=== PATIENT | female | born 1965 | race Caucasian/White ===

== ENCOUNTER 2022-10-17 07:36 | Observation (INO) | payer SELFPAY ==
[~2022-10-17] VITALS: Ht 167.6 cm; Wt 63.5 kg
[~2022-10-17 07:36] MED LIST: BENL200I SC; HYDR200T46 PO; OMEP-173 PO; PREG100C2 PO; TIZA2TA PO; TRAZ-257 PO
[2022-10-17] MEDS ORDERED: CLINDAMYCIN 900 MG in IV 1 EA IV ONE (07:40)
[2022-10-17] MEDS ORDERED: LR 1,000 ML IV SCH ×3 (08:15→18:10)
[2022-10-17] MEDS ORDERED: POTA99CA2 PO (08:34)
[2022-10-17] MEDS ORDERED: VITMTA PO (08:34)
[2022-10-17] MEDS ORDERED: CALTTAB6 PO (08:34)
[2022-10-17] MEDS ORDERED: PREG50CA3 PO (08:34)
[2022-10-17] MEDS ORDERED: ONDA4TAB6 SL (08:34)
[2022-10-17] MEDS ORDERED: MAGN400T33 PO (08:34)
[2022-10-17] MEDS ORDERED: MUPI2OI NARES (08:34)
[2022-10-17] MEDS ORDERED: HOME MED LIST COMPLETE! XX SCH (08:35)
[2022-10-17] MEDS ORDERED: ONDANSETRON 4MG 2ML VIAL As Ordered ONE (08:39)
[2022-10-17] MEDS ORDERED: ROCURONIUM BROMIDE 50MG/5ML VIAL As Ordered ONE ×3 (08:39→12:49)
[2022-10-17] MEDS ORDERED: propofoL 200 MG/20 ML VIAL As Ordered ONE (08:39)
[2022-10-17] MEDS ORDERED: LIDOCAINE 2% 100MG/5ML SDV (FOR ANES.) As Ordered ONE (08:39)
[2022-10-17] MEDS ORDERED: fentaNYL 250 MCG/5 ML INJECTION As Ordered ONE (08:39)
[2022-10-17] MEDS ORDERED: MIDAZOLAM INJ 2MG/2ML VIAL As Ordered ONE (08:39)
[2022-10-17] MEDS ORDERED: SEVOFLURANE INHAL SOLN 250 ML BTL As Ordered ONE (09:10)
[2022-10-17] MEDS ORDERED: LACRILUBE (AKWA TEARS) OPHTH OINT 3.5GM As Ordered ONE (09:12)
[2022-10-17] MEDS ORDERED: GENTAMICIN SULF 80MG/2ML VIAL As Ordered ONE (09:19)
[2022-10-17] MEDS ORDERED: ePHEDrine SULFATE 25 MG/5 ML(5MG/ML) SYRINGE As Ordered ONE ×4 (10:41→14:18)
[2022-10-17] MEDS ORDERED: SUGAMMADEX SODIUM 500 MG/5 ML VIAL (BRIDION) As Ordered ONE (11:13)
[2022-10-17] MEDS ORDERED: HYDROmorphone HCL 2MG/ML 1ML VIAL As Ordered ONE (11:13)
[2022-10-17] MEDS ORDERED: PHENYLephrine 500MCG 5ML (100MCG/ML) SYRINGE As Ordered ONE (12:11)
[2022-10-17] MEDS ORDERED: HYDROMORPHONE HCL 0.5 MG/ 0.5 ML SYRINGE IV PRN (17:00)
[2022-10-17] MEDS ORDERED: ONDANSETRON 4MG 2ML VIAL IV PRN (17:00)
[2022-10-17] MEDS: oxyCODONE 5MG TAB PO PRN ×2 (17:29→18:01)
[2022-10-17] MEDS ORDERED: METOCLOPRAMIDE INJ 10MG/2ML VIAL IV STA (17:32)
[2022-10-17] MEDS: fentaNYL 100 MCG/2 ML INJECTION IV PRN ×4 (17:32→17:54)
[2022-10-17] MEDS ORDERED: oxyCODONE 5MG TAB PO PRN (18:10)
[2022-10-17 19:00] VITALS: BP 113/71; TEMP 97.7; O2SAT 100
[2022-10-17 20:00] VITALS: BP 114/71; TEMP 97.9; O2SAT 100
[2022-10-17] MEDS: tiZANidine 4 MG TAB PO SCH (20:41)
[2022-10-17] MEDS: PREGABALIN 50 MG CAP (LYRICA) PO SCH (20:43)
[2022-10-17] MEDS: HYDROXYCHLOROQUINE 200 MG TAB PO SCH (20:43)
[2022-10-17] MEDS: ACETAMINOPHEN TAB 650MG DOSE (2X325MG) PO PRN (20:44)
[2022-10-17] MEDS ORDERED: OMEPRAZOLE 20MG CAP PO SCH (21:00)
[2022-10-17] MEDS ORDERED: traZODone 100 MG TAB PO SCH (21:00)
[2022-10-17] MEDS: ONDANSETRON 4MG 2ML VIAL IV PRN (23:54)
[2022-10-17] MEDS: MEPERIDINE 25 MG/ML 1ML VIAL IM PRN (23:54)
[2022-10-18 05:11] VITALS: BP 90/50; TEMP 98.8; O2SAT 98
[2022-10-18 07:24] LABS: HEMOGLOBIN 10.7 g/dl (12.0-15.5); MEAN CORPUSCULAR HEMOGLOBIN 30.1 pg (27.0-33.0); MEAN CORPUSCULAR HGB CONC 32.4 g/dl (32.0-36.5); MEAN CORPUSCULAR VOLUME 92.7 fl (80.0-96.0); PLATELET COUNT, AUTOMATED 339 10^3/uL (150-450); RED BLOOD COUNT 3.56 10^6/uL (4.00-5.40); WHITE BLOOD COUNT 10.7 10^3/uL (4.0-10.0)
[2022-10-18] MEDS ORDERED: MAGNESIUM OXIDE 400MG TAB (MAG-OX) PO SCH (09:00)
[2022-10-18] MEDS ORDERED: MULTIVITAMINS/MINERALS THERAP 1 TAB PO SCH (09:00)
[2022-10-18] MEDS: ONDANSETRON 4MG 2ML VIAL IV PRN (09:19)
[2022-10-18] MEDS: HYDROXYCHLOROQUINE 200 MG TAB PO SCH (09:20)
[2022-10-18] MEDS: PREGABALIN 50 MG CAP (LYRICA) PO SCH (09:21)
[2022-10-18] MEDS: tiZANidine 4 MG TAB PO SCH (09:21)
[2022-10-18] MEDS: ACETAMINOPHEN TAB 650MG DOSE (2X325MG) PO PRN (09:23)
[2022-10-18] MEDS ORDERED: OXYC-517 PO (09:44)
[2022-10-18 14:00] VITALS: BP 90/52; TEMP 98.1; O2SAT 99
[2022-10-18] MEDS: MEPERIDINE 25 MG/ML 1ML VIAL IM PRN (14:33)
== END 2022-10-18 15:46 | disposition home or self-care (01) ==
LOC: M SDC 07:36 → M RR INP 07:38 → M MS5PR 18:50
PROVIDERS: ADMIT Plastic Surgery Surgery of the Hand; ATTEND Plastic Surgery Surgery of the Hand
DX: M54.07 Panniculitis affecting regions of neck and back, lumbosacral region (principal); L98.7 Excessive and redundant skin and subcutaneous tissue; Z98.84 Bariatric surgery status; K21.9 Gastro-esophageal reflux disease without esophagitis; Z79.899 Other long term (current) drug therapy; Z88.0 Allergy status to penicillin; Z88.5 Allergy status to narcotic agent
CPT/HCPCS: 15830; 15832; 36415; 85027; 87635; 88302; 96372; 96374; 96376; C9290; J0665; J0737; J1100; J1170; J1580; J2175; J2250; J2371; J2405; J2765; J3010